=== PATIENT | female | born 1960 | race Caucasian/White ===

== ENCOUNTER 2017-09-23 07:57 | Emergency (ER) | payer MEDICARE ==
[~2017-09-23] VITALS: Ht 157.5 cm; Wt 72.6 kg
[~2017-09-23 07:57] MED LIST: ACCUNEB SO1.25 MG/1 INH; DOLOPHINE HCL5 MG PO; PHENERGAN 25 MG25 MG PO; PREDNISONE 20 M20 MG PO; PROAIR HFA8.5 GM INH; SYNTHROID100 MCG PO; TESSALON PERLE100 MG PO; TOBREX5 ML OP; ZPAK PO
[2017-09-23] MEDS ORDERED: ZPAK PO (08:16)
[2017-09-23 08:27] LABS: INFLUENZA A ANTIGEN None Detected (None Detect); INFLUENZA B ANTIGEN None Detected (None Detect)
[2017-09-23 08:40] VITALS: BP 139/80
== END 2017-09-23 08:41 | disposition home or self-care (01) ==
LOC: M.ERS 07:57
PROVIDERS: Emergency Medicine Emergency Medical Services
DX: J18.9 Pneumonia, unspecified organism (principal); F17.210 Nicotine dependence, cigarettes, uncomplicated; E03.9 Hypothyroidism, unspecified; Z86.19 Personal history of other infectious and parasitic diseases; Z90.49 Acquired absence of other specified parts of digestive tract; Z98.890 Other specified postprocedural states

== ENCOUNTER 2017-09-26 08:21 | Observation (INO) | payer MEDICARE ==
[~2017-09-26] VITALS: Ht 157.5 cm; Wt 82.6 kg
[2017-09-26 08:28] VITALS: BP 127/70
[2017-09-26 09:09] LABS: ABSOLUTE LYMPHOCYTES 1.1 thou/uL (0.8-5.3); ABSOLUTE MONOCYTES 0.3 thou/uL (0.0-1.2); EOSINOPHILS 0.4 %; HEMATOCRIT 40.6 % (37.0-47.0); HEMOGLOBIN 13.9 gm/dL (12.0-15.0); MCH 28.9 pg (26.0-34.0); MCHC 34.2 g/dL (28.0-37.0); MCV 84.5 fL (80.0-100.0); MONOCYTES 7.8 %; MPV 8.8 fl. (7.2-11.1); NUCLEATED RBCS 0 /100WBC; PLATELET COUNT* 156 thou/uL (150-400); POLYS 66.8 %; RDW-CV 17.7 % (10.5-14.5); WBC 4.4 thou/uL (4.0-11.0)
[2017-09-26 09:23] LABS: CALCIUM 8.4 mg/dL (8.5-10.1)
[2017-09-26 09:26] LABS: POTASSIUM 2.5 mmol/L (3.5-5.1)
[2017-09-26 09:28] LABS: ALBUMIN 3.4 g/dL (3.4-5.0); TOTAL BILIRUBIN 0.3 mg/dL (<0.1-1.0); TOTAL PROTEIN 8.1 g/dL (6.4-8.2)
[2017-09-26 10:22] LABS: URINE BILIRUBIN NEGATIVE (Negative); URINE BLOOD TRACE (Negative); URINE CLARITY SL CLOUDY; URINE COLOR YELLOW; URINE GLUCOSE-RANDOM NEGATIVE (Negative); URINE KETONES NEGATIVE (Negative); URINE LEUKOCYTES-REFLEX NEGATIVE (Negative); URINE NITRITE-REFLEX NEGATIVE (Negative); URINE PROTEIN TRACE (Negative); URINE SPECIFIC GRAVITY >= 1.030 (1.005-1.030)
[2017-09-26 10:31] LABS: CRYSTALS None Seen /LPF (None Seen); HYALINE CASTS 0-3 Few /LPF (None Seen); SQUAMOUS >10 Many /LPF (0-3); URINE RBC 0-2 Rare /HPF (0-2); URINE WBC-REFLEX 0-5 Rare /HPF (0-5)
[2017-09-26 14:50] VITALS: BP 119/84
[2017-09-26 14:56] VITALS: BP 111/66
--- NOTE | 2017-09-26 16:41 | EKG ---
[place] [address] ELECTROCARDIOGRAM REPORT Name: DAMIEN RODRIGUEZ Room: [address] ADM IN [facility].#: [id number] Admission: 09/26/17 Attend Phys: Park Alonzo MD Discharge: Date of : 64 Report #: [id number] THIS REPORT FOR: //name// [facility] ED Test Date: 2017-09-26 Test Time: 10:22:39 Pat Name: DAMIEN RODRIGUEZ Department: Room: [facility] Gender: F Registered Nurse Surgical Services: Joana NELSON : 1960 Requested By: Lamin Monge Order Number: [id number] MD: Braxton Tavares Measurements Intervals [place] Rate: 74 P: 18 [place]: 151 QRS: 27 QRSD: 96 T: 46 QT: 447 QTc: 496 Interpretive Statements Sinus rhythm Abnormal R-wave progression, early transition Borderline prolonged QT interval Compared to ECG 02/11/2017 10:51:06 rate slowed Electronically Signed On 09-26-2017 16:40:54 [employer]ICE PRESIDENT [employer] by Braxton Tavares [email or web address] <ELECTRONICALLY SIGNED> By: Braxton Tavares MD, FACC 09/26/17 1640 1022 1022 Braxton Tavares MD, [facility] /EPI
[2017-09-26 20:00] VITALS: BP 95/60
[2017-09-27 00:01] VITALS: BP 98/56
[2017-09-27 04:00] VITALS: BP 95/62
[2017-09-27 05:49] LABS: HEMATOCRIT 37.8 % (37.0-47.0); HEMOGLOBIN 12.6 gm/dL (12.0-15.0); MCH 28.5 pg (26.0-34.0); MCHC 33.2 g/dL (28.0-37.0); MCV 85.9 fL (80.0-100.0); MPV 9.1 fl. (7.2-11.1); RBC 4.4 mil/uL (4.20-5.00); RDW-CV 17.6 % (10.5-14.5); WBC 6.5 thou/uL (4.0-11.0)
[2017-09-27 06:04] LABS: ALBUMIN 2.9 g/dL (3.4-5.0); CALCIUM 8.1 mg/dL (8.5-10.1); MAGNESIUM 1.7 mg/dL (1.8-2.4); PHOSPHORUS* 2.5 mg/dL (2.5-4.9); POTASSIUM 3.9 mmol/L (3.5-5.1)
[2017-09-27 08:35] VITALS: BP 91/58
[2017-09-27] MEDS ORDERED: PREDNISONE 10 M10 MG PO (11:45)
[2017-09-27] MEDS ORDERED: LEVAQUIN 500 M500 M2 PO (11:45)
[2017-09-27 14:07] VITALS: BP 106/59
== END 2017-09-27 14:45 | disposition home or self-care (01) ==
LOC: M.ERS 08:21 → M.2W 11:47 → M.TBA-ER 11:47 → M.2W 15:03
PROVIDERS: Emergency Medicine Emergency Medical Services; ADMIT Internal Medicine
DX: J18.9 Pneumonia, unspecified organism (principal); E87.6 Hypokalemia; E03.9 Hypothyroidism, unspecified; G89.29 Other chronic pain; F17.210 Nicotine dependence, cigarettes, uncomplicated; J44.9 Chronic obstructive pulmonary disease, unspecified

== ENCOUNTER 2018-10-26 11:59 | Inpatient (IN) | payer MEDICARE ==
[~2018-10-26] VITALS: Ht 157.5 cm; Wt 83.5 kg
[~2018-10-26 11:59] MED LIST changes: +LEVAQUIN 500 M500 M2 PO; +PREDNISONE 10 M10 MG PO
[2018-10-26 12:05] VITALS: BP 152/74
[2018-10-26 12:34] LABS: ABSOLUTE EOSINOPHILS 0.1 thou/uL (0.0-0.7); ABSOLUTE LYMPHOCYTES 1.3 thou/uL (0.8-5.3); ABSOLUTE MONOCYTES 0.2 thou/uL (0.0-1.2); ABSOLUTE NEUTROPHILS 6.2 thou/uL (1.6-8.1); BASOPHILS 0.6 %; EOSINOPHILS 1.1 %; HEMATOCRIT 36.1 % (37.0-47.0); HEMOGLOBIN 12.5 gm/dL (12.0-15.0); LYMPHOCYTES 16.8 %; MCHC 34.6 g/dL (28.0-37.0); MCV 83.8 fL (80.0-100.0); MONOCYTES 3.1 %; NUCLEATED RBCS 0 /100WBC; PLATELET COUNT* 224 thou/uL (150-400); POLYS 78.4 %; RBC 4.31 mil/uL (4.20-5.00); RDW-CV 16.7 % (10.5-14.5); WBC 7.9 thou/uL (4.0-11.0)
[2018-10-26 13:10] LABS: BUN 8 mg/dL (7-18); CALCIUM 9.3 mg/dL (8.5-10.1); CHLORIDE 89 mmol/L (98-107); GLUCOSE 112 mg/dL (70-99); SODIUM 135 mmol/L (136-145); TROPONIN-I LEVEL <0.06 ng/mL (<0.06)
[2018-10-26 13:13] LABS: CO2 > 45 mmol/L (21-32); POTASSIUM 1.8 mmol/L (3.5-5.1)
[2018-10-26 13:20] LABS: ALBUMIN 3.3 g/dL (3.4-5.0); ALKALINE PHOSPHATASE 127 U/L (46-116); ANION GAP 1 mmol/L (7-16); LIPASE 141 U/L (73-393); NT-PRO BRAIN NAT PEPTIDE 47 pg/mL (<300); SGOT 22 U/L (15-37); SGPT 20 U/L (30-65); TOTAL BILIRUBIN 0.6 mg/dL (<0.1-1.0); TOTAL PROTEIN 7.8 g/dL (6.4-8.2)
--- NOTE | 2018-10-26 16:26 | EKG ---
[place] [address] ELECTROCARDIOGRAM REPORT Name: DAMIEN RODRIGUEZ Room: [place] [address] ADM IN [facility]#: [id number] Admission: 10/26/18 Attend Phys: Rell Escalona Discharge: Date of : 64 Report #: [id number] THIS REPORT FOR: //name// [facility] ED Test Date: 2018-10-26 Test Time: 12:06:43 Pat Name: DAMIEN RODRIGUEZ Department: Room: [facility] Gender: F Communication Lecturer: Joana NELSON : 1960 Requested By: Lamin Monge Order Number: [id number] MD: Braxton Tavares Measurements Intervals [place] Rate: 78 P: 33 [place]: 164 QRS: 28 QRSD: 91 T: 55 QT: 581 QTc: 663 Interpretive Statements Sinus rhythm Abnormal R-wave progression, early transition Borderline ST depression, anterolateral leads Prolonged QT interval Compared to ECG 09/26/2017 10:22:39 no change Electronically Signed On 10-26-2018 16:26:24 [employer] by Braxton Tavares [email or web address] <ELECTRONICALLY SIGNED> By: rBaxton Tavares MD, [facility] 10/26/18 1626 1206 1206 Braxton Tavares MD, [facility] /EPI
[2018-10-26 17:37] VITALS: BP 129/70
[2018-10-26 20:00] VITALS: BP 114/60
[2018-10-27] VITALS: BP 116/56
[2018-10-27 04:00] VITALS: BP 136/68
--- NOTE | 2018-10-27 05:36 | NUR ---
PATIENT PROGRESSING TOWARDS GOALS: POTASSIUM REPLACEMENT IN PROGRESS. PATIENT DENIES CHEST PAIN THIS SHIFT. HAS C/O RHEUMATOID ARTHRITIS PAIN THIS AM, ORDERS RECEIVED FOR IBUPROFREN AND ADMINISTERED PER EMAR. NON-PHARMACOLOGICAL METHODS ALSO OFFERED FOR PAIN RELIEF BUT PATIENT REFUSED. CALL LIGHT WITHIN REACH
[2018-10-27 08:00] VITALS: BP 125/71
--- NOTE | 2018-10-27 10:13 | NUR ---
VSS, ASSUMED CARE IN THE AM, ASSESSMENT PERFORMED AND CHARTED, FALL PRECAUTIONS IN PLACE AND CALL LIGHT IN REACH, PT IS A&O4 AND CALL LIGHT IN REACH, PT IS ON RA, UP AD COLLEEN, FAMILY AT BEDSIDE, TRACING SR/SB ON THE MONITOR, PT ME[facility] WITH [facility], PT STATES GENERALIZED PIAN AND IS UNABLE TP RATE,. PT GOAL IS TO IMPROVE K LABS, WILL FOLLOW WITH PLAN OF CARE.
[2018-10-27 10:46] LABS: CALCIUM 8.7 mg/dL (8.5-10.1); CREATININE 0.9 mg/dL (0.6-1.3); MAGNESIUM 2.1 mg/dL (1.8-2.4); PHOSPHORUS* 2.9 mg/dL (2.5-4.9)
[2018-10-27 10:53] LABS: POTASSIUM 2.5 mmol/L (3.5-5.1)
[2018-10-27 11:49] VITALS: BP 124/59
[2018-10-27 15:39] VITALS: BP 126/72
--- NOTE | 2018-10-27 15:56 | NUR ---
cm completed initial assessment. discussed home situation and d/c plan. pt a&ox4. pt plans to d/c at home w/HH or SNF. pt lives at home w/family. pt is acitve and indepenent. pt has no DME. no anticipated needs at this time. cm to remain available to assist as needed.
[2018-10-27 19:55] VITALS: BP 123/68
[2018-10-28 00:44] VITALS: BP 113/54
[2018-10-28 04:54] VITALS: BP 114/68
[2018-10-28 05:16] LABS: CALCIUM 8.7 mg/dL (8.5-10.1); CREATININE 0.9 mg/dL (0.6-1.3)
[2018-10-28 05:21] LABS: POTASSIUM 3.6 mmol/L (3.5-5.1)
--- NOTE | 2018-10-28 05:23 | NUR ---
PATIENT PROGRESSING TOWARDS GOALS: PATIENT'S POTASSIUM REPLACED AND WNL THIS AM. VSS. PATIENT UP INDEPENDENTLY WITH NO COMPLICATIONS. PATIENT DENIES PAIN THIS SHIFT. CALL LIGHT WITHIN REACH
[2018-10-28] MEDS ORDERED: SYNTHROID100 MC1 PO ×2 (07:40→09:02)
[2018-10-28 08:00] VITALS: BP 136/76
[2018-10-28] MEDS ORDERED: POTASSIUM20 PO (11:06)
[2018-10-28 11:27] VITALS: BP 136/76
[2018-10-28 11:51] VITALS: BP 124/78
--- NOTE | 2018-10-28 13:20 | NUR ---
ASSUMED CARE OF PT THIS AM ASSESSED AND DOCUMENTED SEE CHART. PT D/C'D TO HOME. ALL CONSULTS OK WITH D/C. EDUCATION GIVEN RE FOLLOW UPS. MEDICATIONS, AND DRS ORDERS. D/C'D IV AND CARDIAC MONITER. ALL BELONGINGS PACKED UP AND LEFT WITH PT ACCOMPANIED BY STAFF AND DAUGHTER. SCRIPT GIVEN. CALLED IN SCRIPT OF K+ TO JON IN [place] . SPOKE WITH ELADIA.
[2018-10-29 05:40] LABS: GLYCOHEMOGLOBIN (HGB A1C) 5.5 % (4.8-5.6)
[2018-10-29 05:40] LABS: URINE POTASSIUM 23.5 (25.0-125.0)
--- NOTE | 2018-10-31 15:54 | CON ---
[address] [address] CONSULTATION Name: NATHALYJESSICADAMIENLAWSON STEPHENSON Room: [address]#: [id number] Admission: 10/26/18 Attend Phys: Rell Escalona Discharge: 10/28/18 Date of : 64 Report #: [id number] THIS REPORT FOR: //name// CC: [facility] physician/PCP Dale Barroso REQUESTING PHYSICIAN: Dale Barroso DO. REASON FOR CONSULTATION: Hypokalemia. HISTORY OF PRESENT ILLNESS: The patient is a 58-year-old female who is admitted to the hospital on 10/26/2018 with complaints of some chest pain and shortness of breath. She states that shortness of breath and chest tightness started on the day of admission. She had some mild symptoms a few days ago, but they resolved, but then came back in on the day of admission, that became more prominent. When she was evaluated in the Emergency Room, it was found that her potassium was 1.8. Her carbon dioxide 40, BUN 8, creatinine 0.9, magnesium 2.1, calcium 8.7, normal troponin and hemoglobin was 12.5. MEDICAL HISTORY: Significant for history of bronchitis, history of some joint disease. She has been using ibuprofen approximately 4-5 tablets per week for the last couple of years. She also has some history of bronchitis. Past medical history also significant for hepatitis C and mild rheumatoid arthritis that not require any treatment. MEDICATIONS PRIOR TO ADMISSION: On top of the ibuprofen it also include use some albuterol and prednisone. She was taking prednisone started on 09/27/2018 and stopped taking it on 10/26/2018. She also has history of hypothyroidism, so she was taking levothyroxine and she has been using methadone. REVIEW OF SYSTEMS: All negative except for symptoms as mentioned earlier. FAMILY HISTORY: Negative for hypokalemia. SOCIAL HISTORY: She used to smoke, quit smoking a year ago. PHYSICAL EXAMINATION: GENERAL: Awake, alert, oriented, no acute distress. VITAL SIGNS: Blood pressure 124/59, heart rate 61, afebrile. HEENT: Pupils are round. NECK: Fatty. LUNGS: Clear. CARDIOVASCULAR: Regular rate. ABDOMEN: Soft. LOWER EXTREMITIES: [place] [id number] CONSULTATION Name: BERT RODRIGUEZMIKY STEPHENSON Room: [address]#: [id number] Admission: 10/26/18 Attend Phys: Rell Escalona Discharge: 10/28/18 Date of : 64 Report #: [id number] LABORATORY REPORT: As I mentioned earlier. ASSESSMENT: Hyperkalemia in setting of metabolic alkalosis. My plan is to obtain 24-hour urine collection for potassium excretion and if potassium excretion is elevated then probably she has Bartter syndrome; doubt that she has Gitelman syndrome, but this is also a possibility. In the meantime, we are going to continue replacing her potassium. So, I will have more idea regarding diagnosis after a 24-hour urinary potassium excretion. <ELECTRONICALLY SIGNED> By: Andrés Mcdowell MD 10/31/18 1554 1321 [id number] Mcdowell MD /nt
== END 2018-10-28 13:15 | disposition home or self-care (01) | DRG 641 ==
LOC: M.ERS 11:59 → M.TBA-ER 14:28 → M.2W 14:28
PROVIDERS: Emergency Medicine Emergency Medical Services; Internal Medicine Nephrology; ADMIT Internal Medicine
DX: E87.6 Hypokalemia (principal); R07.9 Chest pain, unspecified; E87.3 Alkalosis; E03.9 Hypothyroidism, unspecified; M06.9 Rheumatoid arthritis, unspecified; B19.20 Unspecified viral hepatitis C without hepatic coma; Z90.49 Acquired absence of other specified parts of digestive tract; Z28.21 Immunization not carried out because of patient refusal; Z79.51 Long term (current) use of inhaled steroids; Z87.891 Personal history of nicotine dependence; Z86.19 Personal history of other infectious and parasitic diseases

== ENCOUNTER 2018-11-03 19:01 | Emergency (ER) | payer MEDICARE ==
[~2018-11-03] VITALS: Ht 157.5 cm; Wt 72.6 kg
[~2018-11-03 19:01] MED LIST changes: +POTASSIUM20 PO; +SYNTHROID100 MC1 PO
[2018-11-03 19:50] LABS: ABSOLUTE EOSINOPHILS 0.3 thou/uL (0.0-0.7); ABSOLUTE LYMPHOCYTES 2.1 thou/uL (0.8-5.3); ABSOLUTE MONOCYTES 0.5 thou/uL (0.0-1.2); ABSOLUTE NEUTROPHILS 6.1 thou/uL (1.6-8.1); BASOPHILS 0.2 %; EOSINOPHILS 3.2 %; HEMATOCRIT 38.6 % (37.0-47.0); HEMOGLOBIN 13.3 gm/dL (12.0-15.0); LYMPHOCYTES 23.6 %; MCH 29.3 pg (26.0-34.0); MCHC 34.4 g/dL (28.0-37.0); MCV 85.2 fL (80.0-100.0); MONOCYTES 5.9 %; MPV 7.6 fl. (7.2-11.1); NUCLEATED RBCS 0 /100WBC; PLATELET COUNT* 308 thou/uL (150-400); POLYS 67.1 %; RBC 4.53 mil/uL (4.20-5.00); RDW-CV 17.4 % (10.5-14.5)
[2018-11-03 20:02] LABS: PROTIME 9.9 Seconds (9.20-11.50)
[2018-11-03 20:08] LABS: ANION GAP 3 mmol/L (7-16); BUN 11 mg/dL (7-18); CALCIUM 8.9 mg/dL (8.5-10.1); CHLORIDE 94 mmol/L (98-107); CO2 35 mmol/L (21-32); CREATININE 1.1 mg/dL (0.6-1.3); GLUCOSE 107 mg/dL (70-99); SODIUM 132 mmol/L (136-145); TROPONIN-I LEVEL <0.06 ng/mL (<0.06)
[2018-11-03 20:10] LABS: ALBUMIN 3.2 g/dL (3.4-5.0); ALKALINE PHOSPHATASE 120 U/L (46-116); LIPASE 219 U/L (73-393); NT-PRO BRAIN NAT PEPTIDE 18 pg/mL (<300); SGOT 17 U/L (15-37); SGPT 21 U/L (30-65); TOTAL BILIRUBIN 0.4 mg/dL (<0.1-1.0); TOTAL PROTEIN 7.9 g/dL (6.4-8.2)
[2018-11-04 00:27] VITALS: BP 105/69
--- NOTE | 2018-11-05 15:01 | EKG ---
[place] [address] ELECTROCARDIOGRAM REPORT Name: DAMIEN RODRIGUEZ Room: [facility]#: [id number] Admission: 11/03/18 Attend Phys: Discharge: 11/04/18 Date of : 64 Report #: [id number] THIS REPORT FOR: //name// [facility] ED Test Date: 2018-11-03 Test Time: 19:06:11 Pat Name: DAMIEN ANDERSENJESSICA Department: Room: Gender: F [place]: [facility] : 1960 Requested By: Belinda Barrios Order Number: [id number] MD: Simone Fitzgerald Measurements Intervals [place] Rate: 100 P: 62 [place]: 141 QRS: 52 QRSD: 85 T: 51 QT: 353 QTc: 456 Interpretive Statements Sinus tachycardia Abnormal R-wave progression, early transition Inferior Q waves noted Compared to ECG 10/26/2018 12:06:43 Sinus rhythm no longer present ST (T wave) deviation no longer present Prolonged QT interval no longer present Electronically Signed On 11-05-2018 15:01:27 CDT by Simone Fitzgerald [email or web address] <ELECTRONICALLY SIGNED> By: Simone Fitzgerald MD, FACC 11/05/18 1501 1906 1906 Simone Fitzgerald MD, FAC /EPI
== END 2018-11-04 00:30 | disposition home or self-care (01) ==
LOC: M.ERS 19:01
PROVIDERS: Personal Emergency Response Attendant
DX: R07.89 Other chest pain (principal); E03.9 Hypothyroidism, unspecified; M06.9 Rheumatoid arthritis, unspecified; K75.89 Other specified inflammatory liver diseases; Z90.49 Acquired absence of other specified parts of digestive tract; F17.210 Nicotine dependence, cigarettes, uncomplicated